=== PATIENT | female | born 1965 | race Caucasian/White ===

== ENCOUNTER 2021-04-14 11:17 | Outpatient (CLI) | payer OTHER, SELFPAY ==
--- NOTE | 2021-04-14 11:55 | ECG_ITS ---
Measurements Intervals [place] Rate: 73 P: 50 MN: 131 QRS: 70 QRSD: 89 T: 12 QT: 368 QTc: 406 Interpretive Statements SINUS RHYTHM VOLTAGE CRITERIA FOR LVH MINIMAL Q WAVES- ANTEROLAT/INF LEADS BORDERLINE ECG Electronically Signed On 04-14-2021 12:58:02 CDT by Dusty Jarquin D.O.
== END 2021-04-14 11:18 | disposition home or self-care (01) ==
LOC: CHSCARD 11:28
PROVIDERS: PCP Nurse Practitioner Family
DX: Z01.818 Encounter for other preprocedural examination (principal)
CPT/HCPCS: 93005

== ENCOUNTER 2022-04-02 08:53 | Outpatient (CLI) | payer OTHER, SELFPAY ==
--- NOTE | 2022-04-02 09:10 | ECG_ITS ---
Measurements Intervals [place] Rate: 73 P: 45 AK: 130 QRS: 77 QRSD: 93 T: 36 QT: 382 QTc: 421 Interpretive Statements SINUS RHYTHM VOLTAGE CRITERIA FOR LVH MINIMAL Q WAVES- ANTEROLAT/INF LEADS BORDERLINE ECG Electronically Signed On 04-02-2022 9:25:14 CDT by Dusty Jarqiun D.O.
== END 2022-04-02 08:54 | disposition home or self-care (01) ==
LOC: CHSCARD 09:01
PROVIDERS: PCP Nurse Practitioner Family
DX: Z01.818 Encounter for other preprocedural examination (principal)
CPT/HCPCS: 93005

== ENCOUNTER 2022-11-04 09:32 | Outpatient (CLI) | payer OTHER, SELFPAY ==
--- NOTE | ~2022-11-04 | US_ITS ---
EXAMINATION: US venous doppler UE LT DATE: 11/04/2022 10:03 INDICATION: Left upper extremity pain TECHNIQUE: Grayscale ultrasound images without and with compression and Doppler ultrasound images of the left upper extremity veins were obtained. COMPARISON: None. FINDINGS: The left internal jugular vein, subclavian vein, axillary vein, brachial veins, basilic vein, cephali c vein, radial vein, and ulnar vein are patent. IMPRESSION: 1. No evidence of deep venous thrombosis. Reviewed, dictated and finalized at location B. TY FIRE CHIEF
== END 2022-11-04 09:33 | disposition home or self-care (01) ==
LOC: CHSIMG 09:34
PROVIDERS: PCP Nurse Practitioner Family
DX: S46.012D Strain of muscle(s) and tendon(s) of the rotator cuff of left shoulder, subsequent encounter (principal)
CPT/HCPCS: 93971

== ENCOUNTER 2023-02-02 08:48 | Outpatient (CLI) | payer OTHER, SELFPAY ==
--- NOTE | ~2023-02-02 | US_ITS ---
US arterial ankle brachial ind INDICATION: Peripheral vascular disease TECHNIQUE: Segmental pressures and plethysmographic and Doppler waveforms of the brachial and lower e xtremity arteries were obtained. COMPARISON: None. FINDINGS: Right and left brachial artery pressures of 146 mm Hg and 133 mm Hg, respectively, are concordant (no rmal difference <= 30 mmHg). The right ankle-brachial index (DANDY) is 1.06 (normal >= 0.9-1.0). The right great toe-brachial index (TBI) is 0.75 (normal >= 0.60). The left DANDY is 1.06. The left TBI is 178. IMPRESSION: 1. Normal bilateral ankle-brachial indices. Reviewed, dictated and finalized at location L.
[2023-02-02 09:11] LABS: Hematocrit 40.3 % (35.0-49.0); Hemoglobin 13.6 g/dL (12.0-15.0); Mean Corpuscular HGB Conc 33.7 g/dL (32.0-36.0); Mean Corpuscular Hemoglobin 31.4 pg (27.0-31.0); Mean Corpuscular Volume 93.1 fL (78.0-102.0); Mean Platelet Volume 9.2 fl (9.2-11.8); Platelet Count Result 333 K/mm3 (150-420); Red Blood Count 4.33 M/mm3 (4.20-5.40); Red Cell Distribution Width 12.5 % (11.6-14.4); White Blood Count 7.3 K/mm3 (4.8-10.8)
[2023-02-02 09:33] LABS: Hemoglobin A1C 5.2 % (<5.7)
[2023-02-02 09:58] LABS: Alanine Aminotransferase 27 U/L (14-59); Albumin Level 4.3 g/dL (3.4-5.0); Alkaline Phosphatase 97 U/L (46-116); Anion Gap 9 mmol/L (8-16); Aspartate Amino Transferase 25 U/L (15-37); Bilirubin,Total 1.3 mg/dL (0.00-1.00); Blood Urea Nitrogen 18 mg/dL (7-18); Calcium 9.8 mg/dL (8.5-10.1); Carbon Dioxide 32 mmol/L (21-32); Chloride 93 mmol/L (98-108); Cholesterol 180 mg/dL (0-200); Estimated Glomerular Filt Rate > 60; Glucose 85 mg/dL (70-99); HDL Direct 66 mg/dL (40-60); LDL Cholesterol Calculated 99 mg/dL (<130); Osmolality Calculated 278 mOsm/kg (285-295); Potassium 3.7 mmol/L (3.5-5.1); Sodium 134 mmol/L (136-145); Thyroid Stimulating Hormone 0.91 uIU/mL (0.36-3.74); Total Protein 7.7 g/dL (6.4-8.2); Triglycerides 73 mg/dL (0-150)
[2023-02-07 20:12] LABS: Vitamin D 25 Hydroxy 38 ng/mL (30-100)
== END 2023-02-02 08:49 | disposition home or self-care (01) ==
PROVIDERS: PCP Nurse Practitioner Family; Visit Provider Nurse Practitioner Family
DX: Z13.228 Encounter for screening for other metabolic disorders (principal); I10 Essential (primary) hypertension; E66.9 Obesity, unspecified; E56.9 Vitamin deficiency, unspecified; I73.9 Peripheral vascular disease, unspecified
CPT/HCPCS: 36415; 80053; 80061; 82306; 83036; 84443; 85027; 93922

== ENCOUNTER 2023-07-10 08:55 | Outpatient (CLI) | payer OTHER, SELFPAY ==
--- NOTE | ~2023-07-10 | MR_ITS ---
EXAMINATION: MR cervical spine wo con DATE: 07/10/2023 09:54 INDICATION: Cervical radiculopathy. TECHNIQUE: Magnetic resonance imaging (MRI) of the cervical spine was performed without intravenous c ontrast. Sequences included sagittal T2-weighted FSE, sagittal T2-weighted FS FSE, sagittal T1-weight ed FSE, axial MERGE, and axial T2-weighted FSE. COMPARISON: None FINDINGS: There is 2 mm anterolisthesis of C4 on C5. Vertebral body heights are normal. There is mild ly decreased disc height at C3-C4 and C4-C5, severely decreased disc height at C5-C6, and moderately decreased disc height at C6-C7. The spinal cord signal intensity is normal. The following disc levels are specifically discussed: C2-C3: The disc does not extend beyond the endplate margin. There is no uncovertebral joint osteoarth ritis. There is moderate right and severe left facet joint osteoarthritis. There is no neural foramin al stenosis. There is no central canal stenosis. C3-C4: The disc is bulging. There is moderate right and mild left uncovertebral joint osteoarthritis. There is severe bilateral facet joint osteoarthritis. There is mild bilateral neural foraminal steno sis. There is mild central canal stenosis. C4-C5: The disc is bulging. There is moderate and mild left uncovertebral joint osteoarthritis. There is severe right and mild left facet joint osteoarthritis. There is mild right neural foraminal steno sis. There is mild central canal stenosis. C5-C6: The disc is bulging. There is severe bilateral uncovertebral joint osteoarthritis. There is mi ld bilateral facet joint osteoarthritis. There is mild bilateral neural foraminal stenosis. There is mild central canal stenosis. C6-C7: The disc is bulging. There is severe bilateral uncovertebral joint osteoarthritis. There is mo derate bilateral facet joint osteoarthritis. There is mild right and moderate left neural foraminal s tenosis. There is mild central canal stenosis. C7-T1: There is a left central extrusion. There is no uncovertebral joint osteoarthritis. There is se mehdi bilateral facet joint osteoarthritis. There is mild bilateral neural foraminal stenosis. There i s no central canal stenosis. IMPRESSION: 1. Severe cervical spondylosis. Reviewed, dictated and finalized at location A.
== END 2023-07-10 08:56 | disposition home or self-care (01) ==
LOC: CHSIMG 08:56
PROVIDERS: PCP Nurse Practitioner Family; Visit Provider Nurse Practitioner Family
DX: M54.12 Radiculopathy, cervical region (principal); M43.02 Spondylolysis, cervical region
CPT/HCPCS: 72141

== ENCOUNTER 2024-08-22 10:53 | Outpatient (CLI) | payer OTHER, SELFPAY | END 2024-08-22 10:54 | disposition home or self-care (01) | PROVIDERS: PCP Nurse Practitioner Family | DX: L91.8 Other hypertrophic disorders of the skin (principal) | CPT/HCPCS: 88305 ==

== ENCOUNTER 2025-07-27 07:35 | Outpatient (CLI) | payer OTHER, SELFPAY ==
--- OUTSIDE RECORDS SUMMARY | 2000-07-20 08:15 | XMS_ITS | Continuity of Care Document ---
Author Organization [facility]erg[facility] with [facility] Address [address] [place] [address] Phone Care Team Providers Care Control Specialist Name Role Phone Lakeshia Mares Unavailable Unavailable Advance Directives Directive Yes / No Effective Date File Name No Information Encounters Encounter Description Practice Location Reason(s) For Visit Diagnoses Date Provider Providers Copied on Encounter [facility], [id number] [place] [address] [address], [place], [place], [id number], [place] tel:[phone] [facility] [place] No Information [phone] Suzan Asher. [address] [facility] , [address], [place], [address], [place]. tel:[phone] Family History Family Member Type Diagnosis Age At Onset No Information Payers Payer name Insurance type Covered republican ID Authoriza tion(s) No Information Social History Type Description Quantity Date Captured Comments Sex Female Smoking Status No Information Chief Complaint And Reason For Visit No Information Reason For Referral Reason For Referral No Information History Of Present Illness Encounter Date Complaint History Of Prese nt Illness No Information Functional Status Date Functional Assessmen t No Information Instructions Date Instruction Additional Infor mation No Information Assessments Type Assessment Date No Information Patient Care Teams Name Effective Dates (start - stop) Status Members No Information
--- NOTE | ~2025-07-27 | US_ITS ---
US right upper quadrant Indication: RUQ PAIN Comparison: None Technique: David-scale and color Doppler images were obtained. Findings: LIVER: Liver measures 15.2 cm, no liver lesions identified. The liver contours are normal. . GALLBLADDER/BILIARY: Unremarkable.No cholelithiais, wall thickening or pericholecystic fluid. No biliary dilatation. CBD 3.9 mm. Davidson sign negative. PANCREAS: Pancreas limited by bowel gas. Right Kidney: The right kidney was not imaged. Impression: No acute abnormality. Reviewed, dictated and finalized at location P. Impression: No acute abnormality.
--- OUTSIDE RECORDS SUMMARY | 2025-07-27 07:41 | XMS_ITS | Clinical Summary ---
Author Organization [facility] Address [address] [place] [address] Care Team Providers Care Door Attendant Name Role Phone Sharyn Kelley GLORIA Primary Care Provider [phone] Allergies Active Allergy Reactions Criticality Noted Date Comments Peppermint Oil Angioedema 11/30/2024 Medications buPROPion SR (WELLBUTRIN SR) 150 MG 12 hr tablet Take 1 tablet (150 mg total) by mouth 2 (two) times daily. 07/24/2024 Active busPIRone (BUSPAR) 5 MG tablet Take 1 tablet (5 mg total) by mouth 2 (two) times daily. 07/21/2024 Active Vitamin D3 (VITAMIN D) 50 mcg tablet Take 1 tablet (50 mcg total) by mouth daily. Active diclofenac sodium (VOLTAREN) 1 % gel Place 2 g onto the skin 4 (four) times daily. 05/04/2018 Active escitalopram (LEXAPRO) 20 MG tablet Take 1 tablet (20 mg total) by mouth daily. 07/24/2024 Active hydroCHLOROthia zide (HYDRODIURIL) 50 MG tablet Take 1 tablet (50 mg total) by mouth daily. 07/24/2024 Active pregabalin (LYRICA) 100 MG capsule Take 1 capsule (100 mg total) by mouth 3 (three) times daily. 06/19/2024 Active MOUNJARO 2.5 MG/0.5ML injection Inject 2.5 mg into the skin every 7 days. 07/21/2024 Active celecoxib (CELEBREX) 200 MG capsule Take 1 capsule (200 mg total) by mouth 2 (two) times daily. 01/20/2025 Active Active Problems Problem Noted Date Diagnosed Date Osteoarthritis of left glenohumeral joint 2023 Primary osteoarthritis of right knee 08/01/2024 Primary osteoarthritis of left knee 08/01/2024 Encounters Date Type Department Care Team Description 05/16/2025 9:30 AM CDT Office Visit [address] [address] Dalia Patricia PA Knee Pain (BILATERAL) 05/16/2025 Travel 05/09/2025 MyChart Message Enc [address] [address] [facility] 05/09/[address] [address] Dalia Patricia PA Medication Request (Lyrica) 05/08/[address] [address] Sandy Ferreira FNP-BC Referral (Visco supplementation) 04/30/[address] [address] Sandy Ferreira FNP-BC Question from Last 3 Months Family History Relation Status Comments Father Mother Social History Tobacco Use Types Packs/Day Years Used Date Smoking Tobacco: Never Smokeless Tobacco: Never Tobacco Cessation:Counseling Given: Not Answered Alcohol Use Standard Drinks/Week Comments Not Currently 0 (1 standard drink = 0.6 oz pur e alcohol) Comments Unknown Sex and Gender Information Value Date Recorded Sex Assigned at Female 11/30/2024 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 Sex Female 8:00 PM CDT Gender Identity Not on file Sexual Orientation Not on file Last Filed Vital Signs Vital Sign Reading Time Taken Comments Blood Pressure - - Pulse - - Temperature - - Respiratory Rate - - Oxygen Saturation - - Inhaled Oxygen Concentration - - Weight 88 kg (194 lb) 05/16/2025 9:22 AM CDT Height 162.6 cm (5' 4) 05/16/2025 9:22 AM CDT Body Mass Index 33.3 05/16/2025 9:22 AM CDT Plan of Treatment Health Maintenance Due Date Last Done Comments Cervical Cancer Screening Pa p Smear (Age 30 to 64) Every 3 Years 1965 Colorectal Cancer Screening Colonoscopy (10 Years) 1965 Annual Physical 1968 Hepatitis C 1983 Cervical Cancer Screening Pa p with HPV Testing (Age 30 to 64) Every 5 Years 1995 Cervical Cancer Screening wi th HPV 1995 Mammogram Screening 2005 Pneumococcal Vaccine: 50+ Years (1 of 1 - PCV) 2015 Zoster Vaccines (1 of 2) 2015 COVID-19 Vaccine (4 - 2024-2 6 season) 2025 09/08/2021, 01/08/2021, 12/18/2020 Influenza Adult (#1) 2025 DTaP, Tdap and Td Vaccines ( 2 - Td or Tdap) 12/17/2026 12/17/2016 RSV Immunization or 60+ Years (1 - 1-dose 75+ series) 2040 Hepatitis A Vaccines Aged Out No long er eligible based on patient's age to complete this topic Meningococcal B Vaccine Aged Out No l onger eligible based on patient's age to complete this topic Meningococcal Vaccine Aged Out No montrell jaxson eligible based on patient's age to complete this topic RSV Immunizations Under 20 Months Aged Out No longer eligible b ased on patient's age to complete this topic Insurance Care Teams Door Attendant Relationship Specialty Start Date End Date Sharyn Kelley APNP PCP - General NURSE PRACTITIONER 08/01/24
--- OUTSIDE RECORDS SUMMARY | 2025-07-27 07:41 | XMS_ITS | Clinical Summary ---
Author Organization [facility] Address [address] [place] [address] Phone Care Team Providers Care Color Grinder Name Role Phone Provider, None Primary Care Provider Unavailabl e Allergies Active Allergy Reactions Criticality Noted Date Comments Hydrocortisone Other (see Comments) Medications buPROPion SR (WELLBUTRIN SR) 100 MG TABLET SR 12 HR bupropion HCl SR 100 mg tablet,12 hr sustained-relea se Take 1 tablet twice a day by oral route. Active FLUoxetine (PROZAC) 40 MG Capsule fluoxetine 40 mg capsule TAKE ONE CAPSULE BY MOUTH EVERY DAY Active valACYclovir (VALTREX) 1 GM Tablet 8 Active Cholecalciferol (VITAMIN D) 2000 UNIT Tablet Take by mouth. Activ e Ibuprofen (MIDOL) 200 MG Capsule Take by mouth. Activ e Active Problems No known active problems Social History Tobacco Use Types Packs/Day Years Used Date Smoking Tobacco: Never Smokeless Tobacco: Never Alcohol Use Standard Drinks/Week Comments No 0 (1 standard drink = 0.6 oz pur e alcohol) Comments Unknown Sex and Gender Information Value Date Recorded Sex Assigned at Not on file Legal Sex Female 11:51 AM CDT Gender Identity Not on file Sexual Orientation Not on file Last Filed Vital Signs Vital Sign Reading Time Taken Comments Blood Pressure 132/92 05/03/2018 1:16 PM CDT Pulse 88 05/03/2018 1:16 PM CDT Temperature 36.7 C (98 F) 05/03/2018 1:16 PM CDT Respiratory Rate 18 05/03/2018 1:16 PM CDT Oxygen Saturation 96% 05/03/2018 1:16 PM CDT Inhaled Oxygen Concentration - - Weight 106.6 kg (235 lb) 05/03/2018 1:16 PM CDT Height 162.6 cm (5' 4) 05/03/2018 1:16 PM CDT Body Mass Index 40.34 05/03/2018 1:16 PM CDT Plan of Treatment Health Maintenance Due Date Last Done Comments Hepatitis C Virus (HCV) Screening 1965 Pap Smear 1986 Cervical Cancer Screening (CCS) 1995 HPV/Cotest 1995 Cologuard 2010 Colonoscopy 2010 Colorectal Cancer Screening 2010 Immunochemical Fecal Occult Blood 2010 Pneumococcal Immunization (5 0+ years) (1 of 1 - PCV) 2015 Zoster Immunization (1 of 2) 2015 Influenza Immunization (#1) 2025 SARS-COV-2 Immunization (2 - season) 2025 09/08/2021 Respiratory Syncytial Virus (RSV) Immunization (Adult) (1 - 1-dose 75+ series) 2040 DTaP/Tdap/Td Immunization Discontinued 12/17/2016 TdaP Immunization Completed 12/17/2016 Hepatitis B Immunization Aged Out No longer eligible based on patient's age to complete this topic Human Papillomavirus (HPV) Immunization Aged Out No longer eligible b ased on patient's age to complete this topic Meningococcal Immunization (ACWY) Aged Out No longer eligible based on patient's age to complete this topic Rotavirus Immunization Aged Out No lo nger eligible based on patient's age to complete this topic Care Teams Color Grinder Relationship Specialty Start Date End Date Provider, None [place] PCP - General 05/03/18
--- OUTSIDE RECORDS SUMMARY | 2025-07-27 07:41 | XMS_ITS | Encounter Summary ---
Author Organization [facility] Address [address] [place] [address] Care Team Providers Care Lvn Lpn Name Role Phone Sharyn Kelley Primary Care Provider Encounter Details Date Type Department Care Team (Late st Contact Info) Description 05/09/2025 eyeOS Message Enc [place] [phone] Fernando, [facility] Provider Knee injection Social History Tobacco Use Types Packs/Day Years Used Date Smoking Tobacco: Never Smokeless Tobacco: Never Alcohol Use Standard Drinks/Week Comments Not Currently 0 (1 standard drink = 0.6 oz pur e alcohol) Comments Unknown Sex and Gender Information Value Date Recorded Sex Assigned at Female 11/30/2024 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
== END 2025-07-27 07:36 | disposition home or self-care (01) ==
LOC: CHSIMG 07:38
PROVIDERS: PCP Nurse Practitioner Family; Visit Provider Nurse Practitioner Family
DX: R10.11 Right upper quadrant pain (principal)
CPT/HCPCS: 76700; 76705

== ENCOUNTER 2025-09-18 07:38 | Outpatient (CLI) | payer OTHER, SELFPAY ==
--- NOTE | ~2025-09-18 | MM_ITS ---
EXAMINATION: MM screening manuela BI w robby HISTORY: Screening. TECHNIQUE: Craniocaudal and mediolateral oblique 3-D tomosynthesis images were obtained and synthetic 2-D images were generated. CAD analysis was submitted and interpreted. COMPARISON: 2016 BREAST PARENCHYMAL COMPOSITION: Dense: The breasts are heterogeneously dense FINDINGS: No suspicious masses are seen. There are no suspicious calcifications. No unexplained architectural distortion is seen. There are no skin or nipple abnormalities identified. There is no adenopathy seen on the images submitted. IMPRESSION: No mammographic evidence to suggest malignancy is seen. The patient may return to screening mammography as per ACR guidelines. BI-RADS 1 - Negative. Reviewed, dictated and finalized at location C. FRAME MAKER
--- OUTSIDE RECORDS SUMMARY | 2025-09-18 07:43 | XMS_ITS | Clinical Summary ---
Author Organization [facility] Address [address] [place] [address] Phone Care Team Providers Care Sheet Fed Printer Name Role Phone Provider, None Primary Care [...] complete this topic Human Papillomavirus (HPV) Immunization (No Doses Required) Completed Meningococcal Immunization (ACWY) Aged Out No longer eligible based on patient's age to complete this topic Rotavirus Immunization Aged Out No lo nger eligible based on patient's age to complete this topic Care Teams Sheet Fed Printer Relationship Specialty Start Date End Date Provider, None [place] PCP - General 05/03/18
--- OUTSIDE RECORDS SUMMARY | 2025-09-18 07:43 | XMS_ITS | Clinical Summary ---
Author Organization [facility] Address [address] [place] [address] Care Team Providers Care Crown Buffer Name Role Phone Sharyn Kelley GLORIA Primary Care Provider [phone] Allergies Active Allergy Reactions Criticality Noted Date [...] 08/01/2024 Primary osteoarthritis of left knee 08/01/2024 Family History Relation Status Comments Father Mother Social History Tobacco Use Types Packs/Day Years Used Date Smoking Tobacco: Never Smokeless Tobacco: Never Tobacco Cessation:Counseling Given: Not Answered Alcohol Use Standard Drinks/Week Comments Not Currently 0 (1 standard drink = 0.6 oz pur e alcohol) Comments Unknown Sex and Gender Information Value Date Recorded Sex Assigned at Female 11/30/2024 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
--- OUTSIDE RECORDS SUMMARY | 2025-09-18 07:43 | XMS_ITS | Encounter Summary ---
Author Organization [facility] Address [address] [place] [address] Care Team Providers Care Sr. 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 Manager Marketing Relationship Specialty Start Date End Date Sharyn Kelley APNP PCP - General NURSE PRACTITIONER 08/01/24 documented as of this encounter
== END 2025-09-18 07:39 | disposition home or self-care (01) ==
LOC: CHSIMG 07:41
PROVIDERS: PCP Nurse Practitioner Family; Visit Provider Nurse Practitioner Family
DX: Z12.31 Encounter for screening mammogram for malignant neoplasm of breast (principal)
CPT/HCPCS: 77063; 77067